=== PATIENT | male | born 1990 | race Caucasian/White ===

== ENCOUNTER 2022-04-28 10:31 | Emergency (ER) | payer MEDICAID ==
[~2022-04-28] VITALS: Ht 167.6 cm; Wt 60.0 kg
[2022-04-28] MEDS ORDERED: KETOROLAC 30MG/ML VIAL IV ONE (11:30)
[2022-04-28 11:53] VITALS: BP 105/78
[2022-04-28 11:58] LABS: BASOPHILS % 0.2 % (0.0-2.0); EOSINOPHILS % 0.1 % (0.0-5.0); HEMATOCRIT. 42.9 % (42.0-52.0); HEMOGLOBIN. 14.5 g/dL (14.0-18.0); LYMPHOCYTES % 12.2 % (20.0-50.0); MEAN CORPUSCULAR HEMOGLOBIN 29.5 pg (28.0-32.0); MEAN CORPUSCULAR VOLUME 87.7 fL (80.0-94.0); MEAN PLATELET VOLUME 9.3 fl (7.4-10.4); NEUTROPHILS % 84.5 % (40.0-76.0); PLATELET 209 x1000/uL (130-400); RED BLOOD CELL COUNT 4.89 mill/uL (4.7-6.1); RED CELL DISTRIBUTION WIDTH 13.6 % (11.6-14.6)
[2022-04-28 12:00] LABS: CHLORIDE 109 mEq/L (98-107)
[2022-04-28 12:07] LABS: C REACTIVE PROTEIN QUANT 0.5 mg/L (0.0-3.0); CREATINE KINASE 752 IU/L (39-308)
[2022-04-28] MEDS ORDERED: SODIUM CHLORIDE 0.9% 1,000 ML IV ONE (13:30)
[2022-04-28] MEDS ORDERED: IBUP-2029 MT (16:14)
== END 2022-04-28 16:24 | disposition home or self-care (01) ==
LOC: ER 10:31
DX: M79.605 Pain in left leg (principal)
CPT/HCPCS: 36415; 72170; 72192; 73552; 80053; 82550; 85025; 85651; 86140; 93971; 96361; 96374; 99285; J1885; J7030